=== PATIENT | male | born 1955 | race Caucasian/White ===

== ENCOUNTER 2022-06-22 06:03 | Day surgery (SDC) | payer MEDICARE, BC, SELFPAY ==
[2022-06-22] VITALS (12 sets, daily range): BP systolic 113–162; BP diastolic 62–86; PULSE 57–68; RESP 12–16; TEMP 36.4–37.1; O2SAT 94–99; BMI 34.0
[2022-06-22] MEDS: SODIUM CHLORIDE 0.9 % (FLUSH) 10 ML SYRINGE IVF (06:45)
[2022-06-22] MEDS: LACTATED RINGERS 1000 ML 1,000 ML 100 ML IV ×2 (06:45→08:11)
--- NOTE | 2022-06-22 06:51 | SUR.PREOP ---
HOME COVID TEST NEGATIVE.
[2022-06-22] MEDS: CEFAZOLIN 2 GM INJ IVP (07:33)
[2022-06-22] MEDS: BUPIVACAINE 0.25% 30 ML INJECTION (07:43)
--- NOTE | 2022-06-22 08:33 | PM.GSPRC ---
Operative Note Date of procedure: 06/22/22 Pre-op diagnosis: Epigastric hernia Post-op diagnosis: Same Type of Procedure: Open epigastric hernia repair with placement of mesh Indications: Patient is a 66-year-old male who presented to clinic with a symptomatic epigastric hernia. Different treatment options were reviewed, including observation versus surgical intervention. Risks and benefits of operative intervention were discussed at length and included, but was not limited to: Bleeding, infection, risk of damage to surrounding structures and possible need for additional procedures. We also reviewed recommendations of no lifting greater than 20 lb for 6 weeks, as well as the risk of recurrence. All questions and concerns were addressed with patient agreeing to proceed. Procedure Description: After discussing the risks and benefits of the procedure, the patient signed informed consent.? The operative site was marked and the patient was brought to the operating room and placed on the operating table in supine position.? Care was taken to pad the patient's pressure points.?? The patient was then intubated by anesthesia.?? The operative site was then prepped and draped in the usual sterile fashion.? A time-out was then performed. A vertical incision was made above the umbilicus. Dissection was carried down into the subcutaneous tissue using cautery. The hernia sac was encountered and care was taken to not enter it. Dissection was taken down to the fascia, in the hernia sac was dissected out circumferentially. The defect did extend towards the umbilicus and the umbilical stalk was taken off of the hernia sac.. Once the hernia sac was dissected out circumferentially, it was reduced. The fascial edges were then cleared circumferentially. The hernia was 4 cm in size and so the decision was made to use a piece of mesh. A preperitoneal pocket was created using a combination of blunt dissection and cautery. Hemostasis appeared adequate. Once the posterior fascia was clear, a piece of large Ventralex ST hernia mesh was placed in the preperitoneal space with care to ensure that it laid flat. This was secured into place using 2 0 PDS interrupted sutures. The tails were then trimmed and the fascial opening was closed with a running 0 Vicryl. Local anesthetic was injected into the fascia, skin and subcutaneous tissues. The umbilicus was reapproximated to the fascia. The incision was closed in layers with interrupted 3 0 Vicryl and running 4-0 Monocryl stitch. A sterile dressing was then applied. ? The patient was then woken and transported to the recovery area in stable condition. ? The patient tolerated the procedure well. Findings: Epigastric hernia, repaired with mesh. Anesthesia: GETA Surgeon: Eugenia Power MD Estimated blood loss (mL): 5 Condition: stable Disposition: same day
--- NOTE | 2022-06-22 08:37 | W.ANESCHARGE ---
Anesthesia Charges Start Date/Time Anesthesia Start Date: 06/22/22 Anesthesia Start Time: 07:23 Stop Date/Time Anesthesia Stop Date: 06/22/22 Anesthesia Stop Time: 08:48 Summary Emergency: No
--- NOTE | 2022-06-22 08:49 | W.ANESCHARGE ---
Anesthesia Charges Start Date/Time Anesthesia Start Date: 06/22/22 Anesthesia Start Time: 07:23 Stop Date/Time Anesthesia Stop Date: 06/22/22 Anesthesia Stop Time: 08:48 Summary Emergency: No
== END 2022-06-22 10:30 | disposition home or self-care (01) ==
PROVIDERS: PCP Family Medicine; Visit Provider Surgery
PROC: (CPT 49593; principal; 2022-06-22 07:30)
DX: K43.9 Ventral hernia without obstruction or gangrene (principal)
CPT/HCPCS: 49593; 00830; C1781; J0330; J0690; J1100; J1885; J2250; J2370; J2405; J2704; J2710; J3010; J3490; J7120